=== PATIENT | female | born 1970 | race Caucasian/White ===

== ENCOUNTER 2017-08-13 17:49 | Emergency (ER) | payer OTHER ==
[~2017-08-13] VITALS: Ht 172.7 cm; Wt 88.5 kg
[~2017-08-13 17:49] MED LIST: BIAXIN500 MG PO; CLARITIN10 MG PO; EFFEXOR75 MG PO; IBU-8800 MG PO; MOTRIN800 MG PO; NKHM; PREDNISONE50 MG PO; ZITHROMAX250 MG PO; ZOLOFT50 MG PO
[2017-08-13] MEDS ORDERED: Motrin,Rufen800 MG PO (20:02)
== END 2017-08-13 20:01 | disposition home or self-care (01) ==
LOC: ED 17:49
DX: M79.604 Pain in right leg (principal); Z79.899 Other long term (current) drug therapy

== ENCOUNTER → 2020-03-18 | Outpatient (CLI) | payer OTHER ==
[~2020-03-18] MED LIST changes: +Motrin,Rufen800 MG PO
== END | disposition home or self-care (01) ==
LOC: LAB 18:27
DX: R73.9 Hyperglycemia, unspecified (principal); N39.0 Urinary tract infection, site not specified

== ENCOUNTER → 2020-04-08 | Outpatient (CLI) | payer OTHER | END | disposition home or self-care (01) | LOC: US 04-04 07:30 | DX: R31.9 Hematuria, unspecified (principal) ==

== ENCOUNTER 2020-11-27 19:36 | Emergency (ER) | payer OTHER ==
[~2020-11-27] VITALS: Ht 172.7 cm; Wt 104.3 kg
[2020-11-27] MEDS ORDERED: BENICAR HCT 401 EAC1 PO (20:08)
[2020-11-27] MEDS ORDERED: LORAZEPAM1 MG PO (20:08)
[2020-11-27] MEDS ORDERED: MELOXICAM15 MG PO (20:08)
[2020-11-27] MEDS ORDERED: ATORVASTATIN CA20 M1 PO (20:08)
[2020-11-27] MEDS ORDERED: RYBELSUS7 MG PO (20:09)
[2020-11-27] MEDS ORDERED: FLONASE ALLERG9.9 ML NAS (20:24)
[2020-11-27] MEDS ORDERED: CLARITIN10 MG PO (20:24)
== END 2020-11-27 20:50 | disposition home or self-care (01) ==
LOC: ED 19:36
DX: J06.9 Acute upper respiratory infection, unspecified (principal); R19.7 Diarrhea, unspecified; H92.01 Otalgia, right ear; H93.A1 Pulsatile tinnitus, right ear; I10 Essential (primary) hypertension; E11.9 Type 2 diabetes mellitus without complications; Z20.822 Contact with and (suspected) exposure to COVID-19; Z79.899 Other long term (current) drug therapy

== ENCOUNTER 2021-06-05 11:25 | Emergency (ER) | payer OTHER ==
[~2021-06-05] VITALS: Ht 172.7 cm; Wt 124.7 kg
[~2021-06-05 11:25] MED LIST changes: +ATORVASTATIN CA20 M1 PO; +BENICAR HCT 401 EAC1 PO; +FLONASE ALLERG9.9 ML NAS; +LORAZEPAM1 MG PO; +MELOXICAM15 MG PO; +RYBELSUS7 MG PO
== END 2021-06-05 13:47 | disposition left against medical advice (07) ==
LOC: ED 11:25
DX: R07.89 Other chest pain (principal); R09.81 Nasal congestion; Z53.21 Procedure and treatment not carried out due to patient leaving prior to being seen by health care provider

== ENCOUNTER 2024-01-22 09:23 | Emergency (ER) | payer BC ==
[~2024-01-22] VITALS: Ht 172.7 cm; Wt 117.9 kg
[2024-01-22] MEDS ORDERED: SODIUM CHLORIDE 0.9% 1,000 ML IV ONE (10:00)
[2024-01-22 10:42] LABS: BASO # 0.1 10*3/uL (0.0-0.1); BASO % 0.8 % (0.0-1.0); EOS # 0.2 10*3/uL (0.0-0.4); HEMATOCRIT 40.5 % (37.0-47.0); LYMPH # 1.9 10*3/uL (1.3-4.4); LYMPH % 25.1 % (27.0-41.0); MEAN CELL VOLUME 86.5 fl (81.0-99.0); MEAN CORPUSCULAR HGB 29.3 pg (27.0-31.0); MEAN CORPUSCULAR HGB CONC 33.8 g/dl (33.0-37.0); MEAN PLATELET VOLUME 9.6 fl (9.6-12.3); MONO # 0.7 10*3/uL (0.1-1.0); MONO % 9.3 % (3.0-9.0); NEUT # 4.6 10*3/uL (2.3-7.9); NEUT % 62.4 % (47.0-73.0); PLATELET COUNT AUTOMATED 296 10*3/uL (130-400); RED BLOOD COUNT 4.68 10*6/uL (4.10-5.10); RED CELL DISTRI WIDTH 12.8 % (0-14.5); WHITE BLOOD COUNT 7.4 10*3/uL (4.8-10.8)
[2024-01-22 11:05] LABS: ALKALINE PHOSPHATASE 57 U/L (46-116); BUN 14 mg/dl (9-23); CHLORIDE 106 mmol/L (98-107); LIPASE 45 U/L (12-53); POTASSIUM 3.9 mmol/L (3.4-5.1); SGPT/ALT 48 U/L (5-49); TOTAL PROTEIN 6.2 gm/dL (6.0-8.0)
[2024-01-22 11:06] LABS: ETHYL ALCOHOL < 3.0 mg/dl (<3)
[2024-01-22 11:12] LABS: BILIRUBIN Negative (Negative); BLOOD Negative (Negative); CLARITY Cloudy (Clear); COLOR Yellow (Yellow); GLUCOSE Negative (Negative); KETONE Negative (Negative); LEUKO ESTERASE 2+ (Negative); NITRITE Negative (Negative); SPECIFIC GRAVITY 1.025 (1.001-1.030)
[2024-01-22 11:21] LABS: BACTERIA 4+; URINE AMPHETAMINES Negative (1000ng/ml); URINE BARBITURATES Negative (200ng/ml); URINE BENZODIAZEPINES Negative (200ng/ml); URINE CANNABINOIDS (THC) Negative (50ng/ml); URINE COCAINE Negative (300ng/ml); URINE METHADONE Negative (300ng/ml); URINE OPIATES Negative (300ng/ml); URINE PHENCYCLIDINE Negative (25ng/ml); WBC 21-30 wbc/hpf (0-5)
[2024-01-22] MEDS ORDERED: OMNICEF300 MG PO (12:09)
== END 2024-01-22 12:37 | disposition home or self-care (01) ==
LOC: ED 09:23
PROVIDERS: Internal Medicine
DX: R55 Syncope and collapse (principal); H66.90 Otitis media, unspecified, unspecified ear; N39.0 Urinary tract infection, site not specified; Z90.89 Acquired absence of other organs; Z90.49 Acquired absence of other specified parts of digestive tract

== ENCOUNTER 2024-02-04 08:48 | Emergency (ER) | payer BC ==
[~2024-02-04] VITALS: Ht 172.7 cm; Wt 124.7 kg
[~2024-02-04 08:48] MED LIST changes: +OMNICEF300 MG PO
[2024-02-04 10:15] LABS: BILIRUBIN Negative (Negative); BLOOD Negative (Negative); CLARITY Clear (Clear); COLOR Yellow (Yellow); GLUCOSE Negative (Negative); KETONE Negative (Negative); LEUKO ESTERASE Negative (Negative); NITRITE Negative (Negative); SPECIFIC GRAVITY <= 1.005 (1.001-1.030); UROBILINOGEN 0.2 E.U./dl (0.0-1.0)
[2024-02-04 10:22] LABS: RBC 0-2 rbc/hpf (0-2); WBC 0-2 wbc/hpf (0-5)
[2024-02-04] MEDS ORDERED: PREDNISONE20 M1 PO (11:27)
== END 2024-02-04 11:32 | disposition home or self-care (01) ==
LOC: ED 08:48
PROVIDERS: Internal Medicine
DX: R30.0 Dysuria (principal); G56.01 Carpal tunnel syndrome, right upper limb